=== PATIENT | female | born 2000 | race Caucasian/White ===

== ENCOUNTER 2019-08-07 10:13 | Inpatient (IN) | payer MEDICAID ==
[2019-08-07] MEDS ORDERED: Lidocaine 1% 50 ML MDV INJECT PRN (12:48)
[2019-08-07] MEDS ORDERED: Ondansetron 4 MG/2 ML SDV IVPUSH PRN (12:48)
[2019-08-07] MEDS ORDERED: Sodium Chloride 0.9% 10 ML Syringe FLUSH PRN (12:48)
[2019-08-07] MEDS ORDERED: Methylergonovine 0.2 MG/1 ML Amp IM PRN (12:48)
[2019-08-07] MEDS ORDERED: Tranexamic Acid 1,000 MG in Sodium Chloride 0.9% 100 ML IV PRN (12:48)
[2019-08-07] MEDS ORDERED: Butorphanol 1 MG/ML SDV IVPUSH PRN (12:48)
[2019-08-07] MEDS ORDERED: Water For Irrigation,Sterile 1,000 ML Container IRR PRN (12:48)
[2019-08-07] MEDS ORDERED: Sodium Chloride 0.9% 2.5 ML Syringe FLUSH PRN (12:48)
[2019-08-07] MEDS ORDERED: Misoprostol 200 MCG Tab PO PRN (12:48)
[2019-08-07] MEDS ORDERED: Carboprost Tromethamine 250 MCG/1 ML Amp IM PRN (12:48)
[2019-08-07] MEDS ORDERED: Sodium Chloride 0.9% 10 ML SDV IV PRN (12:48)
[2019-08-07] MEDS ORDERED: Lactated Ringers 1,000 ML IV SCH (13:00)
[2019-08-07] MEDS ORDERED: Oxytocin/0.9 % Sodium Chloride 30 UNIT/500 ML BAG IV SCH (13:00)
--- NOTE | 2019-08-07 13:39 | PCM.LDHP ---
L&D History of Present Illness - General Date of Service: 08/07/19 Admit Problem/Dx: Patient Status Order with Admit Dx/Problem 08/07/19 11:10 Patient Status [ADT] Routine 08/07/19 12:48 Patient Status [ADT] Routine Admission Diagnosis/Problem Admission Diagnosis/Problem 08/07/19 13:35 19 yo, EDC 08/09/2019 O+, RI, GBS neg. Comes in labor. Source of Information: Patient History Limitations: Reports: No Limitations - History of Present Illness Improves with: Reports: None Worsens with: Reports: None Associated Symptoms: Reports: N H&P Review of Systems - Review of Systems: Review Of Systems: See Below General: Reports: No Symptoms HEENT: Reports: No Symptoms Pulmonary: Reports: No Symptoms Cardiovascular: Reports: No Symptoms Gastrointestinal: Reports: No Symptoms Genitourinary: Reports: No Symptoms Musculoskeletal: Reports: No Symptoms Skin: Reports: No Symptoms Psychiatric: Reports: No Symptoms Neurological: Reports: No Symptoms Hematologic/Lymphatic: Reports: No Symptoms Immunologic: Reports: No Symptoms L&D Exam - Exam Exam: See Below - OB Specific Contraction Intensity: Moderate to Strong Movement: Active Heart Tones: Present Heart Tones per Min: 140 Heart Rate (FHR) Variability: Moderate (6-25 bmp) Presentation: Vertex - Hernandez Score Hernandez Score Cervix Position: Midposition Hernandez Score Consistency: Soft Hernandez Score Effacement: 51-70% Hernandez Score Dilation: 3-4 cm Hernandez Score 's Station: -2 Hernandez Score Total: 8 - Exam General: Alert, Oriented, Cooperative HEENT: Hearing Intact Lungs: Clear to Auscultation, Normal Respiratory Effort Cardiovascular: Regular Rate, Regular Rhythm, Normal S1, Normal S2 GI/Abdominal Exam: Soft, Non-Tender, Pelvis Stable Rectal Exam: Deferred Genitourinary: Normal external exam, Normal bimanual exam. No: Cervical fluid, Vaginal bleeding Extremities: Normal Inspection, Normal Range of Motion, Non-Tender, No Pedal Edema Skin: Warm, Dry, Intact Neurological: Cranial Nerves Intact, Normal Speech, Normal Tone Psychiatric: Alert, Normal Affect, Normal Mood - Problem List (1) Supervision of normal IUP (intrauterine ) in primigravida SNOMED Code(s): 88381808, 850626363, 736088486, 512922386 ICD Code: Z34.00 - ENCNTR FOR SUPRVSN OF NORMAL FIRST , UNSP TRIMESTER Status: Acute Priority: High Current Visit: Yes Qualifiers: Trimester: third trimester Qualified Code(s): Z34.03 - Encounter for supervision of normal first , third trimester Problem List Initiated/Reviewed/Updated: Yes Orders Last 24hrs: Active Orders 24 hr Category Date Time Status Patient Status [ADT] Routine ADT 08/07/19 12:48 Active Heart Tones [RC] CONTINUOUS Care 08/07/19 12:48 Active Non Stress Test [RC] PER UNIT ROUTINE Care 08/07/19 11:10 Active Non Stress Test [RC] PER UNIT ROUTINE Care 08/07/19 12:48 Active May Shower [RC] ASDIRECTED Care 08/07/19 12:48 Active Notify Provider [RC] PRN Care 08/07/19 12:48 Active Up ad Betty [RC] ASDIRECTED Care 08/07/19 11:10 Active Up ad Betty [RC] ASDIRECTED Care 08/07/19 12:48 Active Vaginal Exam [RC] Click to Edit Care 08/07/19 11:10 Active Vaginal Exam [RC] PRN Care 08/07/19 12:48 Active Vital Signs [RC] PER UNIT ROUTINE Care 08/07/19 11:10 Active Vital Signs [RC] PER UNIT ROUTINE Care 08/07/19 12:48 Active Regular Diet [DIET] Diet 08/07/19 Lunch Active CBC W/O DIFF,HEMOGRAM [HEME] Routine Lab 08/07/19 12:48 Ordered CORONAVIRUS COVID-19 PCR PHL Routine Lab 08/07/19 12:51 Ordered RPR (SYPHILIS SERO) W/ RFLX [REF] Routine Lab 08/07/19 12:48 Ordered TYPE AND SCREEN [BBK] Routine Lab 08/07/19 12:48 Ordered Butorphanol [Stadol] Med 08/07/19 12:48 Active 1 mg IVPUSH Q1H PRN Carboprost Tromethamine [Hemabate DS] Med 08/07/19 12:48 Active 250 mcg IM ASDIRECTED PRN Lactated Ringers [Ringers, Lactated] 1,000 ml Med 08/07/19 13:00 Active IV ASDIRECTED Lidocaine 1% [Xylocaine 1%] Med 08/07/19 12:48 Active 50 ml INJECT ONETIME PRN Methylergonovine [Methergine] Med 08/07/19 12:48 Active 0.2 mg IM ASDIRECTED PRN Ondansetron [Zofran] Med 08/07/19 12:48 Active 4 mg IVPUSH Q6H PRN Oxytocin/0.9 % Sodium Chloride [Oxytocin 30 Unit/500 ML Med 08/07/19 13:00 Active -NS] 30 unit in 500 ml IV TITRATE Sodium Chloride 0.9% [Normal Saline] Med 08/07/19 12:48 Active 10 ml IV ASDIRECTED PRN Sodium Chloride 0.9% [Saline Flush] Med 08/07/19 12:48 Active 10 ml FLUSH ASDIRECTED PRN Sodium Chloride 0.9% [Saline Flush] Med 08/07/19 12:48 Active 2.5 ml FLUSH ASDIRECTED PRN Tranexamic Acid [Cyklokapron] 1,000 mg Med 08/07/19 12:48 Active Sodium Chloride 0.9% [Normal Saline] 100 ml IV ONETIME Water For Irrigation,Sterile [Sterile Water for Med 08/07/19 12:48 Active Irrigation] 1,000 ml IRR ASDIRECTED PRN miSOPROStoL [Cytotec] Med 08/07/19 12:48 Active 200 mcg PO ONETIME PRN Scalp Electrode [WOMSER] Per Unit Routine Oth 08/07/19 12:48 Ordered Peripheral IV Insertion Adult [OM.PC] Routine Oth 08/07/19 12:48 Ordered Resuscitation Status Routine Resus Stat 08/07/19 11:10 Ordered Medication Orders Butorphanol Tartrate (Stadol) 1 mg IVPUSH Q1H PRN PRN Reason: Pain Carboprost Tromethamine (Hemabate Ds) 250 mcg IM ASDIRECTED PRN PRN Reason: Post Hemorrhage Lactated Ringer's (Ringers, Lactated) 1,000 mls @ 150 mls/hr IV ASDIRECTED YOLANDA Oxytocin/Sodium Chloride (Oxytocin 30 Unit/500 Ml-Ns) 30 unit in 500 mls @ 999 mls/hr IV TITRATE YOLANDA Tranexamic Acid 1,000 mg/ (Sodium Chloride) 110 mls @ 660 mls/hr IV ONETIME PRN PRN Reason: Bleeding Lidocaine HCl (Xylocaine 1%) 50 ml INJECT ONETIME PRN PRN Reason: Laceration repair Methylergonovine Maleate (Methergine) 0.2 mg IM ASDIRECTED PRN PRN Reason: Post Hemorrhage Misoprostol (Cytotec) 200 mcg PO ONETIME PRN PRN Reason: Post Hemorrhage Ondansetron HCl (Zofran) 4 mg IVPUSH Q6H PRN PRN Reason: Nausea/Vomiting Sodium Chloride (Saline Flush) 10 ml FLUSH ASDIRECTED PRN PRN Reason: Keep Vein Open Sodium Chloride (Saline Flush) 2.5 ml FLUSH ASDIRECTED PRN PRN Reason: Keep Vein Open Sodium Chloride (Normal Saline) 10 ml IV ASDIRECTED PRN PRN Reason: IV Use Sterile Water (Sterile Water For Irrigation) 1,000 ml IRR ASDIRECTED PRN PRN Reason: delivery Assessment/Plan Comment:: Labor A: 19 yo, EDC 08/09/2019 O+, RI, GBS neg. Comes in labor. P: Admit, intermit monitoring, pain meds/epidural prn, anticipate . Dr Rhoaeds updated
[2019-08-07] MEDS ORDERED: Nalbuphine 10 MG/1 ML Vial ONE (18:18)
[2019-08-07 18:32] LABS: BLOOD UREA NITROGEN,BUN 11 mg/dL (7.0-18.0); CHLORIDE,CL 104 mmol/L (98-107); GLUCOSE RANDOM 70 mg/dL (74-106); POTASSIUM,K 4.1 mmol/L (3.5-5.1); SODIUM,NA 137 mmol/L (136-145)
[2019-08-07] MEDS: Nalbuphine 10 MG/1 ML Vial IVPUSH PRN (21:03)
[2019-08-08] MEDS: Nalbuphine 10 MG/1 ML Vial IVPUSH PRN (00:43)
--- NOTE | 2019-08-08 13:53 | PCM.DEL ---
L & D Note - General Info Date of Service: 08/08/19 Mother's Due Date: 08/09/19 - Delivery Note Labor: Spontaneous Delivery Outcome: Livebirth Infant Delivery Method: Spontaneous Vaginal Delivery-Single Presentation: Vertex Nuchal Cord: None Anesthesia Type: None Amniotic Fluid Description: Clear Episiotomy Type: None Laceration: Labial (left-sided, not repaired, hemostatic) Cord: 3 Vessels Estimated Blood Loss: 500 Resuscitation Needed: No Score 1 min: 8 Score 5 min: 9 Second Stage Interventions: Reports: Second Nurse Assessed Progress of Descent, Second Nurse Reviewed Contraction Pattern, Second Nurse Reviewed Heart Tones, Encouragement Given, Pushing Effectively, Pushing, Pulls Own Legs Back Delivery Comments (Free Text/Narrative):: at 39 6/7 weeks; viable male ; head delivered with good pushing; shoulders and body following easily after; baby to mom's abdomen [id number] for assessment; APGARs 8/9; weight: 6 lb 11 oz; cord doubly clamped, cut by FOB after 2 minutes; placenta delivered grossly intact, 3VC, EBL 500 mL; fundus boggy initially, pitocin to IVF, some improvement but still boggy; bimanual exam normal, unremarkable; methergine 0.2 mg given IM; several large clots expressed by nurse fundal massage; fundus firm; perineum intact, small left-sided labial laceration noted, hemostatic, not repaired; mom and baby left in stable condition with nurse at bedside for assessment - General Info Date of Service: 08/08/19 Admission Dx/Problem (Free Text): Patient Status Order with Admit Dx/Problem 08/07/19 11:10 Patient Status [ADT] Routine 08/07/19 12:48 Patient Status [ADT] Routine Admission Diagnosis/Problem Admission Diagnosis/Problem 08/07/19 13:35 19 yo, EDC 08/09/2019 O+, RI, GBS neg. Comes in labor. Functional Status: Reports: Pain Controlled, Tolerating Diet - Review of Systems General: Reports: No Symptoms HEENT: Reports: No Symptoms Pulmonary: Reports: No Symptoms Cardiovascular: Reports: No Symptoms Gastrointestinal: Reports: No Symptoms Genitourinary: Reports: No Symptoms Musculoskeletal: Reports: No Symptoms Skin: Reports: No Symptoms Neurological: Reports: No Symptoms Psychiatric: Reports: No Symptoms - Patient Data Weight - Most Recent: 147 lb Lab Results Last 24 Hours: Laboratory Results - last 24 hr 08/07/19 08/07/19 08/07/19 Range/Units 13:25 13:25 13:25 WBC 9.86 (4.0-11.0) K/uL RBC 4.25 L (4.30-5.90) M/uL Hgb 13.7 (12.0-16.0) g/dL Hct 40.5 (36.0-46.0) % MCV 95.3 (80.0-98.0) fL MCH 32.2 H (27.0-32.0) pg MCHC 33.8 (31.0-37.0) g/dL RDW Std Deviation 49.0 (28.0-62.0) fl RDW Coeff of Harman 14 (11.0-15.0) % Plt Count 186 (150-400) K/uL MPV 12.70 H (7.40-12.00) fL Nucleated RBC % 0.0 /100WBC Nucleated RBCs # 0 K/uL Sodium (136-145) mmol/L Potassium (3.5-5.1) mmol/L Chloride (98-107) mmol/L Carbon Dioxide (21.0-32.0) mmol/L BUN (7.0-18.0) mg/dL Creatinine (0.6-1.0) mg/dL Est Cr Clr Drug Dosing mL/min Estimated GFR (MDRD) ml/min Glucose (74-106) mg/dL Uric Acid 4.2 (2.6-7.2) mg/dL Calcium (8.5-10.1) mg/dL Total Bilirubin (0.2-1.0) mg/dL AST (15-37) IU/L ALT (14-63) IU/L Alkaline Phosphatase (46-116) U/L Total Protein (6.4-8.2) g/dL Albumin (3.4-5.0) g/dL Globulin (2.6-4.0) g/dL Albumin/Globulin Ratio (0.9-1.6) Blood Type O POSITIVE Antibody Screen NEGATIVE 08/07/19 Range/Units 13:25 WBC (4.0-11.0) K/uL RBC (4.30-5.90) M/uL Hgb (12.0-16.0) g/dL Hct (36.0-46.0) % MCV (80.0-98.0) fL MCH (27.0-32.0) pg MCHC (31.0-37.0) g/dL RDW Std Deviation (28.0-62.0) fl RDW Coeff of Harman (11.0-15.0) % Plt Count (150-400) K/uL MPV (7.40-12.00) fL Nucleated RBC % /100WBC Nucleated RBCs # K/uL Sodium 137 (136-145) mmol/L Potassium 4.1 (3.5-5.1) mmol/L Chloride 104 (98-107) mmol/L Carbon Dioxide 21.0 (21.0-32.0) mmol/L BUN 11 (7.0-18.0) mg/dL Creatinine 0.6 (0.6-1.0) mg/dL Est Cr Clr Drug Dosing 128.08 mL/min Estimated GFR (MDRD) > 60.0 ml/min Glucose 70 L (74-106) mg/dL Uric Acid (2.6-7.2) mg/dL Calcium 9.6 (8.5-10.1) mg/dL Total Bilirubin 0.3 (0.2-1.0) mg/dL AST 20 (15-37) IU/L ALT 5 L (14-63) IU/L Alkaline Phosphatase 165 H (46-116) U/L Total Protein 6.6 (6.4-8.2) g/dL Albumin 2.9 L (3.4-5.0) g/dL Globulin 3.7 (2.6-4.0) g/dL Albumin/Globulin Ratio 0.8 L (0.9-1.6) Blood Type Antibody Screen Med Orders - Current: Current Medications Butorphanol Tartrate (Stadol) 1 mg IVPUSH Q1H PRN PRN Reason: Pain Carboprost Tromethamine (Hemabate Ds) 250 mcg IM ASDIRECTED PRN PRN Reason: Post Hemorrhage Lactated Ringer's (Ringers, Lactated) 1,000 mls @ 150 mls/hr IV ASDIRECTED YOLANDA Oxytocin/Sodium Chloride (Oxytocin 30 Unit/500 Ml-Ns) 30 unit in 500 mls @ 999 mls/hr IV TITRATE YOLANDA Tranexamic Acid 1,000 mg/ (Sodium Chloride) 110 mls @ 660 mls/hr IV ONETIME PRN PRN Reason: Bleeding Lidocaine HCl (Xylocaine 1%) 50 ml INJECT ONETIME PRN PRN Reason: Laceration repair Methylergonovine Maleate (Methergine) 0.2 mg IM ASDIRECTED PRN PRN Reason: Post Hemorrhage Misoprostol (Cytotec) 200 mcg PO ONETIME PRN PRN Reason: Post Hemorrhage Nalbuphine HCl (Nubain) 10 mg IVPUSH Q1H PRN PRN Reason: Pain Last Admin: 08/08/19 00:43 Dose: 10 mg Documented by: Ondansetron HCl (Zofran) 4 mg IVPUSH Q6H PRN PRN Reason: Nausea/Vomiting Sodium Chloride (Saline Flush) 10 ml FLUSH ASDIRECTED PRN PRN Reason: Keep Vein Open Sodium Chloride (Saline Flush) 2.5 ml FLUSH ASDIRECTED PRN PRN Reason: Keep Vein Open Last Admin: 08/08/19 00:44 Dose: 2.5 ml Documented by: Sodium Chloride (Normal Saline) 10 ml IV ASDIRECTED PRN PRN Reason: IV Use Sterile Water (Sterile Water For Irrigation) 1,000 ml IRR ASDIRECTED PRN PRN Reason: delivery Discontinued Medications Nalbuphine HCl (Nubain) Confirm Administered Dose 10 mg .ROUTE .STK-MED ONE Stop: 08/07/19 18:19 Last Admin: 08/07/19 18:21 Dose: 10 mg Documented by: - Exam General: Alert, Oriented, Cooperative, No Acute Distress Lungs: Normal Respiratory Effort Cardiovascular: Regular Rate, Regular Rhythm GI/Abdominal Exam: Soft, Non-Tender (Female) Exam: Normal External Exam, Normal Bimanual Exam Back Exam: Normal Inspection, Full Range of Motion Extremities: Normal Inspection, Normal Range of Motion, Non-Tender, Normal Cap illary Refill Skin: Warm, Dry, Intact Neurological: No New Focal Deficit, Normal Speech, Normal Tone, Strength Equal Bilateral, Sensation Intact Psy/Mental Status: Alert, Normal Affect, Normal Mood - Problem List & Annotations (1) (spontaneous vaginal delivery) SNOMED Code(s): 569836496 Code(s): O80 - ENCOUNTER FOR FULL-TERM UNCOMPLICATED DELIVERY Status: Acute Priority: High Current Visit: Yes - Problem List Review Problem List Initiated/Reviewed/Updated: Yes - Plan Plan:: Labor A: 19 yo, EDC 08/09/2019 O+, RI, GBS neg. Comes in labor. P: Admit, intermit monitoring, pain meds/epidural prn, anticipate . Dr Rhoades updated Delivery A: at 39 6/7 weeks; viable male infant; head delivered with good pushing; shoulders and body following easily after; baby to mom's abdomen [id number] for assessment; APGARs 8/9; weight: 6 lb 11 oz; cord doubly clamped, cut by FOB after 2 minutes; placenta delivered grossly intact, 3VC, EBL 500 mL; fundus boggy initially, pitocin to IVF, some improvement but still boggy; bimanual exam normal, unremarkable; methergine 0.2 mg given IM; several large clots expressed by nurse fundal massage; fundus firm; perineum intact, small left-sided labial laceration noted, hemostatic, not repaired; mom and baby left in stable condition with nurse at bedside for assessment P: Routine plan of care; Dr. Rhoades updated.
[2019-08-08] MEDS ORDERED: Benzocaine/Menthol 20%-0.5% Spray 78 GM Cannister TOP PRN (13:55)
[2019-08-08] MEDS ORDERED: Lanolin 100% Cream 7 GM Tube TOP PRN (13:55)
[2019-08-08] MEDS ORDERED: Bisacodyl 10 MG Supp RECTAL PRN (13:55)
[2019-08-08] MEDS ORDERED: oxyCODONE 5 MG Tab PO PRN (13:55)
[2019-08-08] MEDS ORDERED: Acetaminophen 500 MG Tab PO PRN ×2 (13:55)
[2019-08-08] MEDS ORDERED: Ibuprofen 800 MG Tab PO PRN (13:55)
[2019-08-08] MEDS ORDERED: Docusate Sodium 100 MG Cap PO PRN (13:55)
[2019-08-08] MEDS ORDERED: Witch Hazel Medicated Pads 40/Jar TOP PRN (13:55)
[2019-08-08] MEDS ORDERED: Ibuprofen 400 MG Tab PO PRN (13:55)
--- NOTE | 2019-08-09 08:02 | PCM.DCSUM1 ---
Discharge Summary - Hospital Course Free Text/Narrative:: Discharge home with baby. Follow up in the clinic in 6 weeks for routine visit. Diagnosis: Stroke: No Modified Yessenia Scale: No Symptoms at All Modified [place] Scale Score: 0 - Discharge Data Discharge Date: 08/09/19 Discharge Disposition: Home, Self-Care 01 Condition: Good - Referral to Home Health Primary Care Physician: Sonia Lambert [employer] - Discharge Diagnosis/Problem(s) (1) (spontaneous vaginal delivery) SNOMED Code(s): 996084961 ICD Code: O80 - ENCOUNTER FOR FULL-TERM UNCOMPLICATED DELIVERY Status: Acute Priority: High Current Visit: Yes - Patient Instructions Diet: Regular Diet as Tolerated, Drink 8-10+ Glasses/Day Activity: As Tolerated, No Strenuous Activities, Rest and Relax Today Driving: May Drive Today Showering/Bathing: May Shower Notify Provider of: Fever, Increased Pain, Swelling and Redness, Drainage, Nausea and/or Vomiting - Discharge Plan *PRESCRIPTION DRUG MONITORING PROGRAM REVIEWED*: Not Applicable *COPY OF PRESCRIPTION DRUG MONITORING REPORT IN PATIENT MEGHA: Not Applicable Prescriptions/Med Rec: Ibuprofen [Motrin] 800 mg PO Q6H PRN #90 tablet PRN Reason: Pain Home Medications: Home Meds Pnv #30/Iron Carb&Aspg/Fa/Om3 [OB Complete with DHA Softgel] 08/07/19 [History] Ibuprofen [Motrin] 800 mg PO Q6H PRN #90 tablet 08/09/19 [Rx] Oxygen Therapy Mode: Room Air Referrals: [facility] [Outside] Tamera Oden CNM [Mid-] - 09/19/19 3:30 pm - Discharge Summary/Plan Comment DC Time >30 min.: Yes - General Info Date of Service: 08/09/19 Admission Dx/Problem (Free Text: Patient Status Order with Admit Dx/Problem 08/07/19 11:10 Patient Status [ADT] Routine 08/07/19 12:48 Patient Status [ADT] Routine Admission Diagnosis/Problem Admission Diagnosis/Problem 08/07/19 13:35 19 yo, EDC 08/09/2019 O+, RI, GBS neg. Comes in labor. Functional Status: Reports: Pain Controlled, Tolerating Diet, Ambulating, Urinating - Review of Systems General: Reports: No Symptoms HEENT: Reports: No Symptoms Pulmonary: Reports: No Symptoms Cardiovascular: Reports: No Symptoms Gastrointestinal: Reports: No Symptoms Genitourinary: Reports: No Symptoms Musculoskeletal: Reports: No Symptoms Skin: Reports: No Symptoms Neurological: Reports: No Symptoms Psychiatric: Reports: No Symptoms - Patient Data Vitals - Most Recent: Last Vital Signs Temp 97.1 F 08/09/19 05:18 Pulse 81 08/09/19 05:18 Resp 15 08/09/19 05:18 BP 111/76 08/09/19 05:18 Pulse Ox 97 08/09/19 05:18 Weight - Most Recent: 147 lb Lab Results - Last 24 hrs: Laboratory Results - last 24 hr 08/09/19 Range/Units 05:02 Hgb 9.9 L (12.0-16.0) g/dL Hct 29.9 L (36.0-46.0) % Med Orders - Current: Current Medications Acetaminophen (Tylenol Extra Strength) 500 mg PO Q4H PRN PRN Reason: Pain Acetaminophen (Tylenol Extra Strength) 1,000 mg PO Q4H PRN PRN Reason: Pain Last Admin: 08/08/19 14:36 Dose: 1,000 mg Documented by: Benzocaine/Menthol (Dermoplast Pain Relief 20%-0.5% Savage) 78 gm TOP ASDIRECTED PRN PRN Reason: Perineal Comfort Measure Bisacodyl (Dulcolax) 10 mg RECTAL ONETIME PRN PRN Reason: Constipation Docusate Sodium (Colace) 100 mg PO BID PRN PRN Reason: Constipation Emollient Ointment (Lansinoh Hpa) 0 gm TOP ASDIRECTED PRN PRN Reason: Sore Nipples Ibuprofen (Motrin) 400 mg PO Q4H PRN PRN Reason: Pain Ibuprofen (Motrin) 800 mg PO Q6H PRN PRN Reason: Pain Oxycodone HCl (Oxycodone) 5 mg PO Q2H PRN PRN Reason: Pain Witch Anne Marie (Tucks) 1 pad TOP ASDIRECTED PRN PRN Reason: comfort care Discontinued Medications Butorphanol Tartrate (Stadol) 1 mg IVPUSH Q1H PRN PRN Reason: Pain Carboprost Tromethamine (Hemabate Ds) 250 mcg IM ASDIRECTED PRN PRN Reason: Post Hemorrhage Lactated Ringer's (Ringers, Lactated) 1,000 mls @ 150 mls/hr IV ASDIRECTED [facility] Oxytocin/Sodium Chloride (Oxytocin 30 Unit/500 Ml-Ns) 30 unit in 500 mls @ 999 mls/hr IV TITRATE [facility] Tranexamic Acid 1,000 mg/ (Sodium Chloride) 110 mls @ 660 mls/hr IV ONETIME PRN PRN Reason: Bleeding Lidocaine HCl (Xylocaine 1%) 50 ml INJECT ONETIME PRN PRN Reason: Laceration repair Methylergonovine Maleate (Methergine) 0.2 mg IM ASDIRECTED PRN PRN Reason: Post Hemorrhage Last Admin: 08/08/19 13:20 Dose: 0.2 mg Documented by: Misoprostol (Cytotec) 200 mcg PO ONETIME PRN PRN Reason: Post Hemorrhage Nalbuphine HCl (Nubain) Confirm Administered Dose 10 mg .ROUTE .K-MED ONE Stop: 08/07/19 18:19 Last Admin: 08/07/19 18:21 Dose: 10 mg Documented by: Nalbuphine HCl (Nubain) 10 mg IVPUSH Q1H PRN PRN Reason: Pain Last Admin: 08/08/19 00:43 Dose: 10 mg Documented by: Ondansetron HCl (Zofran) 4 mg IVPUSH Q6H PRN PRN Reason: Nausea/Vomiting Sodium Chloride (Saline Flush) 10 ml FLUSH ASDIRECTED PRN PRN Reason: Keep Vein Open Sodium Chloride (Saline Flush) 2.5 ml FLUSH ASDIRECTED PRN PRN Reason: Keep Vein Open Last Admin: 08/08/19 00:44 Dose: 2.5 ml Documented by: Sodium Chloride (Normal Saline) 10 ml IV ASDIRECTED PRN PRN Reason: IV Use Sterile Water (Sterile Water For Irrigation) 1,000 ml IRR ASDIRECTED PRN PRN Reason: delivery - Exam General: Reports: Alert, Oriented, Cooperative, No Acute Distress Lungs: Reports: Normal Respiratory Effort Cardiovascular: Reports: Regular Rate, Regular Rhythm GI/Abdominal Exam: Soft, Non-Tender (Female) Exam: Deferred Rectal (Female) Exam: Deferred Back Exam: Reports: Normal Inspection, Full Range of Motion Extremities: Normal Inspection, Normal Range of Motion, Non-Tender, Normal Capillary Refill Skin: Reports: Warm, Dry, Intact Psy/Mental Status: Reports: Alert, Normal Affect, Normal Mood
== END 2019-08-09 16:30 | disposition home or self-care (01) | DRG 807 ==
LOC: MW.OBCHECK 10:13 → MW.OB 10:17 → MW.OBCHECK 12:48 → OBSVTOIN 08-08 13:10 → MW.OB 08-08 19:56
PROVIDERS: ADMIT Obstetrics & Gynecology; ATTEND Obstetrics & Gynecology
PROC: 10E0XZZ Delivery of Products of Conception, External Approach (ICD-10-PCS; principal; 2019-08-08)
PROC: 10907ZC Drainage of Amniotic Fluid, Therapeutic from Products of Conception, Via Natural or Artificial Opening (ICD-10-PCS; 2019-08-08)
DX: O70.0 First degree perineal laceration during delivery (principal); Z37.0 Single live birth; Z3A.39 39 weeks gestation of pregnancy
CPT/HCPCS: 36415; 59025; 59409; 80053; 84550; 85014; 85018; 85027; 86592; 86850; 86900; 86901; A9270-GY; J2210; J2300

== ENCOUNTER 2020-08-26 09:00 | Inpatient (IN) | payer MEDICAID ==
[2020-08-26] MEDS ORDERED: Carboprost Tromethamine 250 MCG/1 ML Amp IM PRN (10:15)
[2020-08-26] MEDS ORDERED: Sodium Chloride 0.9% 10 ML SDV IV PRN (10:15)
[2020-08-26] MEDS ORDERED: Water For Irrigation,Sterile 1,000 ML Container IRR PRN (10:15)
[2020-08-26] MEDS ORDERED: Nalbuphine 10 MG/1 ML Vial IVPUSH PRN (10:15)
[2020-08-26] MEDS ORDERED: Methylergonovine 0.2 MG/1 ML Amp IM PRN (10:15)
[2020-08-26] MEDS ORDERED: Sodium Chloride 0.9% 2.5 ML Syringe FLUSH PRN (10:15)
[2020-08-26] MEDS ORDERED: Terbutaline 1 MG/ML SDV SUBCUT PRN (10:15)
[2020-08-26] MEDS ORDERED: hydrOXYzine Pamoate 25 MG Cap PO PRN (10:15)
[2020-08-26] MEDS ORDERED: Tranexamic Acid 1,000 MG in Sodium Chloride 0.9% 100 ML IV PRN (10:15)
[2020-08-26] MEDS ORDERED: Oxytocin/0.9 % Sodium Chloride 30 UNIT/500 ML BAG IV SCH ×2 (10:15)
[2020-08-26] MEDS ORDERED: Sodium Chloride 0.9% 10 ML Syringe FLUSH PRN (10:15)
[2020-08-26] MEDS ORDERED: Lidocaine 1% 50 ML MDV INJECT PRN (10:15)
[2020-08-26] MEDS ORDERED: Ondansetron 4 MG/2 ML SDV IVPUSH PRN (10:15)
[2020-08-26] MEDS ORDERED: Misoprostol 200 MCG Tab PO PRN (10:15)
[2020-08-26] MEDS: Lactated Ringers 1,000 ML IV SCH ×2 (10:56→22:05)
[2020-08-26] MEDS: Misoprostol 25 MCG (1/4 of 100 MCG) Tab PO PRN ×2 (10:57→16:11)
--- NOTE | 2020-08-26 10:57 | PCM.LDHP ---
L&D History of Present Illness - General Date of Service: 08/26/20 Admit Problem/Dx: Patient Status Order with Admit Dx/Problem 08/26/20 10:15 Patient Status [ADT] Routine Admission Diagnosis/Problem Admission Diagnosis/Problem 08/26/20 10:53 Ileana is a 20 yo at 38+6 weeks gestation (RADHA(LMP) 09/03/2020) that presents to L&D today for IOL re: suspected growth restriction AEB fundal heights low for dates, growth via US 5th%ile (08/22/2020). Patient seen in office 08/25/2020, NST completed and reactive. RBAs of IOL and mode of cervical ripening (cytotec) discussed in office, consents signed. Reports adequate movement. Denies kitty vaginal bleeding, LOF, pain at this time. O pos, RI, GBS neg. EFW 2585 g (5 lb 11 oz), 5th%ile via US 08/22/2020, DWD. Pertinent medical history includes: marginal amniotic fluid/hemorrhoids. NKDA. Medic ations: PNV. Patient has no other complaints or concerns at this time. 08/26/20 10:57 Source of Information: Patient History Limitations: Reports: No Limitations - History of Present Illness Improves with: Reports: None Worsens with: Reports: None - Related Data Allergies/Adverse Reactions: Allergies Allergy/AdvReac Type Severity Reaction Status Date / Time No Known Allergies Allergy Verified 08/07/19 14:48 Home Medications: Home Meds Pnv #30/Iron Carb&Aspg/Fa/Om3 [OB Complete with DHA Softgel] 08/07/19 [History] Ibuprofen [Motrin] 800 mg PO Q6H PRN #90 tablet 08/09/19 [Rx] Past Medical History HEENT History: Reports: None Cardiovascular History: Reports: None Respiratory History: Reports: None Gastrointestinal History: Reports: None Genitourinary History: Reports: None DOCTOR OF PHARMACY History: Reports: : 2 Para: 1 LMP (Approximate): Musculoskeletal History: Reports: None Neurological History: Reports: None Psychiatric History: Reports: None Endocrine/Metabolic History: Reports: None Hematologic History: Reports: None Immunologic History: Reports: None Oncologic (Cancer) History: Reports: None Dermatologic History: Reports: None - Infectious Disease History Infectious Disease History: Reports: Chicken Pox - Past Surgical History Head Surgeries/Procedures: Reports: None HEENT Surgical History: Reports: None Cardiovascular Surgical History: Reports: None Respiratory Surgical History: Reports: None GI Surgical History: Reports: None Female Surgical History: Reports: None Endocrine Surgical History: Reports: None Neurological Surgical History: Reports: None Musculoskeletal Surgical History: Reports: None Oncologic Surgical History: Reports: None Dermatological Surgical History: Reports: None Social & Family History - Family History Family Medical History: No Pertinent Family History - Tobacco Use Tobacco Use Status *Q: Never Tobacco User - Caffeine Use Caffeine Use: Reports: Coffee, Soda - Alcohol Use Alcohol Use History: No - Recreational Drug Use Recreational Drug Use: No H&P Review of Systems - Review of Systems: Review Of Systems: Comprehensive ROS is negative, except as noted in HPI. General: Reports: No Symptoms HEENT: Reports: No Symptoms Pulmonary: Reports: No Symptoms Cardiovascular: Reports: No Symptoms Gastrointestinal: Reports: No Symptoms Genitourinary: Reports: No Symptoms Musculoskeletal: Reports: No Symptoms Skin: Reports: No Symptoms Psychiatric: Reports: No Symptoms Neurological: Reports: No Symptoms Hematologic/Lymphatic: Reports: No Symptoms Immunologic: Reports: No Symptoms L&D Exam - Exam Exam: See Below - Vital Signs Vital Signs: VSS, afebrile. See flowsheet. Weight: 140 lb - OB Specific Fundal Height In cm: 35 Contraction Duration (sec): 40-60 Contraction Frequency (min): Occasional Contraction Intensity: Mild Movement: Active Heart Tones: Present Heart Tones per Min: 140 Heart Rate (FHR) Variability: Moderate (6-25 bmp) Presentation: Vertex (via Thanh's) - Hernandez Score Hernandez Score Cervix Position: Posterior Hernandez Score Consistency: Medium Hernandez Score Effacement: 0-30% Hernandez Score Dilation: Closed Hernandez Score Infant's Station: -3 Hernandez Score Total: 1 - Exam General: Alert, Oriented, Cooperative HEENT: Conjunctiva Clear, Hearing Intact, Mucosa Moist & [place], Nares Patent, PERRLA Neck: Supple, Trachea Midline Lungs: Clear to Auscultation, Normal Respiratory Effort Cardiovascular: Regular Rate, Regular Rhythm GI/Abdominal Exam: Normal Bowel Sounds, Soft, Non-Tender, No Organomegaly, No Distention Rectal Exam: Deferred Genitourinary: Normal external exam, Enlarged uterus (Gravid uterus) Back Exam: Normal Inspection, Full Range of Motion Extremities: Normal Inspection, Normal Range of Motion, Non-Tender, No Pedal Edema, Normal Capillary Refill Skin: Warm, Dry, Intact Neurological: Cranial Nerves Intact, Reflexes Equal Bilateral Psychiatric: Alert, Normal Affect, Normal Mood - Patient Data Lab Results Last 24 hrs: Laboratory Results - last 24 hr 08/26/20 08/26/20 Range/Units 09:30 09:50 WBC 6.44 (4.0-11.0) K/uL RBC 4.09 L (4.30-5.90) M/uL Hgb 10.5 L (12.0-16.0) g/dL Hct 33.0 L (36.0-46.0) % MCV 80.7 (80.0-98.0) fL MCH 25.7 L (27.0-32.0) pg MCHC 31.8 (31.0-37.0) g/dL RDW Std Deviation 42.2 (28.0-62.0) fl RDW Coeff of Harman 15 (11.0-15.0) % Plt Count 246 (150-400) K/uL MPV 11.80 (7.40-12.00) fL Nucleated RBC % 0.0 /100WBC Nucleated RBCs # 0 K/uL SARS-CoV-2 RNA (VENKAT) NEGATIVE (NEGATIVE) Result Diagrams: 08/26/20 09:50 - Problem List (1) Encounter for induction of labor SNOMED Code(s): 290680837 ICD Code: Z34.90 - ENCNTR FOR SUPRVSN OF NORMAL , UNSP, UNSP TRIMESTER Status: Acute Priority: High Current Visit: Yes (2) Maternal care for suspected poor growth, third trimester, single gestation SNOMED Code(s): 333160380, 229796356, 241371741 ICD Code: O36.5930 - MATERN CARE FOR OTH OR SUSP POOR FETL GRTH, THIRD TRI, UNSP Status: Acute Priority: High Current Visit: Yes Problem List Initiated/Reviewed/Updated: Yes Orders Last 24hrs: Active Orders 24 hr Category Date Time Status Patient Status [ADT] Routine ADT 08/26/20 10:15 Active Bedrest Bathroom Privileges [RC] ASDIRECTED Care 08/26/20 10:15 Active Communication Order [RC] ASDIRECTED Care 08/26/20 10:15 Active Communication Order [RC] ASDIRECTED Care 08/26/20 10:15 Active Communication Order [RC] ASDIRECTED Care 08/26/20 10:15 Active Heart Tones [RC] CONTINUOUS Care 08/26/20 10:15 Active Non Stress Test [RC] PER UNIT ROUTINE Care 08/26/20 10:15 Active May Shower [RC] ASDIRECTED Care 08/26/20 10:15 Active Notify Provider [RC] PRN Care 08/26/20 10:15 Active Notify Provider [RC] PRN Care 08/26/20 10:15 Active Notify Provider [RC] PRN Care 08/26/20 10:15 Active Notify Provider [RC] STAT Care 08/26/20 10:15 Active Oxygen Therapy [RC] ASDIRECTED Care 08/26/20 10:15 Active Up ad Betty [RC] ASDIRECTED Care 08/26/20 10:15 Active Vaginal Exam [RC] PRN Care 08/26/20 10:15 Active Vaginal Exam [RC] PRN Care 08/26/20 10:15 Active Vital Signs [RC] PER UNIT ROUTINE Care 08/26/20 10:15 Active Vital Signs [RC] PER UNIT ROUTINE Care 08/26/20 10:15 Active Regular Diet [DIET] Diet 08/26/20 Breakfast Active RPR (SYPHILIS SERO) W/ RFLX [REF] Routine Lab 08/26/20 09:50 Received TYPE AND SCREEN [BBK] Routine Lab 08/26/20 09:50 Received Carboprost Tromethamine [Hemabate DS] Med 08/26/20 10:15 Active 250 mcg IM ASDIRECTED PRN Lactated Ringers [Ringers, Lactated] 1,000 ml Med 08/26/20 10:15 Active IV ASDIRECTED Lidocaine 1% [Xylocaine 1%] Med 08/26/20 10:15 Active 50 ml INJECT ONETIME PRN Methylergonovine [Methergine] Med 08/26/20 10:15 Active 0.2 mg IM ASDIRECTED PRN Nalbuphine [Nubain] Med 08/26/20 10:15 Active 10 mg IVPUSH Q1H PRN Ondansetron [Zofran] Med 08/26/20 10:15 Active 4 mg IVPUSH Q6H PRN Oxytocin/0.9 % Sodium Chloride [Oxytocin 30 Unit/500 ML Med 08/26/20 10:15 Active -NS] 30 unit in 500 ml IV TITRATE Oxytocin/0.9 % Sodium Chloride [Oxytocin 30 Unit/500 ML Med 08/26/20 10:15 Active -NS] 30 unit in 500 ml IV TITRATE Sodium Chloride 0.9% [Normal Saline] Med 08/26/20 10:15 Active 10 ml IV ASDIRECTED PRN Sodium Chloride 0.9% [Saline Flush] Med 08/26/20 10:15 Active 10 ml FLUSH ASDIRECTED PRN Sodium Chloride 0.9% [Saline Flush] Med 08/26/20 10:15 Active 2.5 ml FLUSH ASDIRECTED PRN Terbutaline [Brethine] Med 08/26/20 10:15 Active 0.25 mg SUBCUT ASDIRECTED PRN Tranexamic Acid [Cyklokapron] 1,000 mg Med 08/26/20 10:15 Active Sodium Chloride 0.9% [Normal Saline] 100 ml IV ONETIME Water For Irrigation,Sterile [Sterile Water for Med 08/26/20 10:15 Active Irrigation] 1,000 ml IRR ASDIRECTED PRN hydrOXYzine pamoate [Vistaril] Med 08/26/20 10:15 Active 25 mg PO BEDTIME PRN miSOPROStoL [Cytotec] Med 08/26/20 10:15 Active 200 mcg PO ONETIME PRN miSOPROStoL [Cytotec] Med 08/26/20 10:30 Active 25 mcg PO Q4H PRN miSOPROStoL [Cytotec] Med 08/26/20 10:30 Active 25 mcg VAG Q4H PRN Scalp Electrode [WOMSER] Per Unit Routine Oth 08/26/20 10:15 Ordered Medication Administration Instruction [OM.PC] Q3H Oth 08/26/20 10:15 Ordered Peripheral IV Insertion Adult [OM.PC] Routine Oth 08/26/20 10:15 Ordered Resuscitation Status Routine Resus Stat 08/26/20 10:15 Ordered Medication Orders Carboprost Tromethamine (Carboprost Tromethamine 250 Mcg/1 Ml Amp) 250 mcg IM ASDIRECTED PRN PRN Reason: Post Hemorrhage Hydroxyzine Pamoate (Hydroxyzine Pamoate 25 Mg Cap) 25 mg PO BEDTIME PRN PRN Reason: Sleep Lactated Ringer's (Ringers, Lactated) 1,000 mls @ 150 mls/hr IV ASDIRECTED YOLANDA Oxytocin/Sodium Chloride (Oxytocin 30 Unit/500 Ml-Ns) 30 unit in 500 mls @ 999 mls/hr IV TITRATE YOLANDA Tranexamic Acid 1,000 mg/ (Sodium Chloride) 110 mls @ 660 mls/hr IV ONETIME PRN PRN Reason: Bleeding Oxytocin/Sodium Chloride (Oxytocin 30 Unit/500 Ml-Ns) 30 unit in 500 mls @ 2 mls/hr IV TITRATE YOLANDA; Protocol Lidocaine HCl (Lidocaine 1% 50 Ml Mdv) 50 ml INJECT ONETIME PRN PRN Reason: Laceration repair Methylergonovine Maleate (Methylergonovine 0.2 Mg/1 Ml Amp) 0.2 mg IM ASDIRECTE D PRN PRN Reason: Post Hemorrhage Misoprostol (Misoprostol 200 Mcg Tab) 200 mcg PO ONETIME PRN PRN Reason: Post Hemorrhage Misoprostol (Misoprostol 25 Mcg (1/4 Of 100 Mcg) Tab) 25 mcg PO Q4H PRN PRN Reason: Cervical Ripening Misoprostol (Misoprostol 25 Mcg (1/4 Of 100 Mcg) Tab) 25 mcg VAG Q4H PRN PRN Reason: Cervical Ripening Nalbuphine HCl (Nalbuphine 10 Mg/1 Ml Vial) 10 mg IVPUSH Q1H PRN PRN Reason: Pain (severe 7-10) Ondansetron HCl (Ondansetron 4 Mg/2 Ml Sdv) 4 mg IVPUSH Q6H PRN PRN Reason: Nausea/Vomiting Sodium Chloride (Sodium Chloride 0.9% 10 Ml Syringe) 10 ml FLUSH ASDIRECTED PRN PRN Reason: Keep Vein Open Sodium Chloride (Sodium Chloride 0.9% 2.5 Ml Syringe) 2.5 ml FLUSH ASDIRECTED PRN PRN Reason: Keep Vein Open Sodium Chloride (Sodium Chloride 0.9% 10 Ml Sdv) 10 ml IV ASDIRECTED PRN PRN Reason: IV Use Sterile Water (Water For Irrigation,Sterile 1,000 Ml Container) 1,000 ml IRR ASDIRECTED PRN PRN Reason: delivery Terbutaline Sulfate (Terbutaline 1 Mg/Ml Sdv) 0.25 mg SUBCUT ASDIRECTED PRN PRN Reason: Tacysystole Assessment/Plan Comment:: Admit for observation in anticipation of of term viable . FHR Cat I. Occasional pontaneous contractions noted. Plan to commence cytotec cervical ripening re: IOL for suspected growth restriction. Plan to reassess cervical dilation 4 hours after first dose. If no change has been made, may administer cytotec per orders. May ambulate and hydrotherapy as desired after reactive NST achieved; repeat NST per orders. May receive epidural if desired between 5+ cm. See new orders. Dr. Rhoades to resume care, notified, and agreeable with POC.
[2020-08-26] MEDS: Misoprostol 25 MCG (1/4 of 100 MCG) Tab VAG PRN ×2 (10:58→16:11)
[2020-08-26] MEDS ORDERED: Ropivacaine HCl/PF 200 ML ONE (21:57)
[2020-08-26] MEDS ORDERED: Bupivacaine 0.25% 10 ML SDV ONE (21:57)
--- NOTE | 2020-08-26 22:28 | PCM.PREANE ---
Preanesthetic Assessment - Anesthesia/Transfusion/Family Hx Anesthesia History: No Prior Anesthesia Family History of Anesthesia Reaction: No Transfusion History: No Prior Transfusion(s) Type of Transfusion Reactions: Reports: Unknown - Review of Systems General: No Symptoms Pulmonary: No Symptoms Cardiovascular: No Symptoms Gastrointestinal: No Symptoms Neurological: No Symptoms Other: Reports: None - Physical Assessment NPO Status Date: 08/26/20 NPO Status Time: 18:00 Height: 5 ft 4 in Weight: 140 lb ASA Class: 2 Mental Status: Alert & Oriented x3 Airway Class: Mallampati = 3 Dentition: Reports: Normal Dentition ROM/Head Extension: Full Lungs: Clear to Auscultation, Normal Respiratory Effort Cardiovascular: Regular Rate, Regular Rhythm - Lab Values: Laboratory Last Values WBC 6.44 K/uL (4.0-11.0) 08/26/20 09:50 RBC 4.09 M/uL (4.30-5.90) L 08/26/20 09:50 Hgb 10.5 g/dL (12.0-16.0) L 08/26/20 09:50 Hct 33.0 % (36.0-46.0) L 08/26/20 09:50 MCV 80.7 fL (80.0-98.0) 08/26/20 09:50 MCH 25.7 pg (27.0-32.0) L 08/26/20 09:50 MCHC 31.8 g/dL (31.0-37.0) 08/26/20 09:50 RDW Std Deviation 42.2 fl (28.0-62.0) 08/26/20 09:50 RDW Coeff of Harman 15 % (11.0-15.0) 08/26/20 09:50 Plt Count 246 K/uL (150-400) 08/26/20 09:50 MPV 11.80 fL (7.40-12.00) 08/26/20 09:50 Nucleated RBC % 0.0 /100WBC 08/26/20 09:50 Nucleated RBCs # 0 K/uL 08/26/20 09:50 SARS-CoV-2 RNA (VENKAT) NEGATIVE (NEGATIVE) 08/26/20 09:30 Blood Type O POSITIVE 08/26/20 09:50 Antibody Screen NEGATIVE 08/26/20 09:50 - Allergies Allergies/Adverse Reactions: Allergies Allergy/AdvReac Type Severity Reaction Status Date / Time No Known Allergies Allergy Verified 08/07/19 14:48 - Blood Blood Available: Yes Product(s) Available: PRBC - Anesthesia Plan Pre-Op Medication Ordered: None - Acknowledgements Anesthesia Type Planned: Epidural Pt an Appropriate Candidate for the Planned Anesthesia: Yes Alternatives and Risks of Anesthesia Discussed w Pt/Guardian: Yes Pt/Guardian Understands and Agrees with Anesthesia Plan: Yes PreAnesthesia Questionnaire - Past Health History Medical/Surgical History: Denies Medical/Surgical History HEENT History: Reports: None Cardiovascular History: Reports: None Respiratory History: Reports: None Gastrointestinal History: Reports: None Genitourinary History: Reports: None [employer]CH[employer] History: Reports: Musculoskeletal History: Reports: None Neurological History: Reports: None Psychiatric History: Reports: None Endocrine/Metabolic History: Reports: None Hematologic History: Reports: None Immunologic History: Reports: None Oncologic (Cancer) History: Reports: None Dermatologic History: Reports: None - Infectious Disease History Infectious Disease History: Reports: Chicken Pox - Past Surgical History Head Surgeries/Procedures: Reports: None HEENT Surgical History: Reports: None Cardiovascular Surgical History: Reports: None Respiratory Surgical History: Reports: None GI Surgical History: Reports: None Female Surgical History: Reports: None Endocrine Surgical History: Reports: None Neurological Surgical History: Reports: None Musculoskeletal Surgical History: Reports: None Oncologic Surgical History: Reports: None Dermatological Surgical History: Reports: None - SUBSTANCE USE Tobacco Use Status *Q: Never Tobacco User Tobacco Use Within Last Twelve Months: No Second Hand Smoke Exposure: No Recreational Drug Use History: No - HOME MEDS Home Medications: Home Meds Pnv #30/Iron Carb&Aspg/Fa/Om3 [OB Complete with DHA Softgel] 1 tab PO DAILY 08/07/19 [History] - CURRENT (IN HOUSE) MEDS Current Meds: Current Medications Carboprost Tromethamine (Carboprost Tromethamine 250 Mcg/1 Ml Amp) 250 mcg IM ASDIRECTED PRN PRN Reason: Post Hemorrhage Hydroxyzine Pamoate (Hydroxyzine Pamoate 25 Mg Cap) 25 mg PO BEDTIME PRN PRN Reason: Sleep Lactated Ringer's (Ringers, Lactated) 1,000 mls @ 150 mls/hr IV ASDIRECTED YOLANDA Last Admin: 07/13/21 10:56 Dose: 150 mls/hr Documented by: Oxytocin/Sodium Chloride (Oxytocin 30 Unit/500 Ml-Ns) 30 unit in 500 mls @ 999 mls/hr IV TITRATE YOLANDA Tranexamic Acid 1,000 mg/ (Sodium Chloride) 110 mls @ 660 mls/hr IV ONETIME PRN PRN Reason: Bleeding Oxytocin/Sodium Chloride (Oxytocin 30 Unit/500 Ml-Ns) 30 unit in 500 mls @ 2 mls/hr IV TITRATE YOLANDA; Protocol Lidocaine HCl (Lidocaine 1% 50 Ml Mdv) 50 ml INJECT ONETIME PRN PRN Reason: Laceration repair Methylergonovine Maleate (Methylergonovine 0.2 Mg/1 Ml Amp) 0.2 mg IM ASDIRECTED PRN PRN Reason: Post Hemorrhage Misoprostol (Misoprostol 200 Mcg Tab) 200 mcg PO ONETIME PRN PRN Reason: Post Hemorrhage Misoprostol (Misoprostol 25 Mcg (1/4 Of 100 Mcg) Tab) 25 mcg PO Q4H PRN PRN Reason: Cervical Ripening Last Admin: 08/26/20 16:11 Dose: 25 mcg Documented by: Misoprostol (Misoprostol 25 Mcg (1/4 Of 100 Mcg) Tab) 25 mcg VAG Q4H PRN PRN Reason: Cervical Ripening Last Admin: 08/26/20 16:11 Dose: 25 mcg Documented by: Nalbuphine HCl (Nalbuphine 10 Mg/1 Ml Vial) 10 mg IVPUSH Q1H PRN PRN Reason: Pain (severe 7-10) Ondansetron HCl (Ondansetron 4 Mg/2 Ml Sdv) 4 mg IVPUSH Q6H PRN PRN Reason: Nausea/Vomiting Sodium Chloride (Sodium Chloride 0.9% 10 Ml Syringe) 10 ml FLUSH ASDIRECTED PRN PRN Reason: Keep Vein Open Sodium Chloride (Sodium Chloride 0.9% 2.5 Ml Syringe) 2.5 ml FLUSH ASDIRECTED PRN PRN Reason: Keep Vein Open Sodium Chloride (Sodium Chloride 0.9% 10 Ml Sdv) 10 ml IV ASDIRECTED PRN PRN Reason: IV Use Sterile Water (Water For Irrigation,Sterile 1,000 Ml Container) 1,000 ml IRR ASDIRECTED PRN PRN Reason: delivery Terbutaline Sulfate (Terbutaline 1 Mg/Ml Sdv) 0.25 mg SUBCUT ASDIRECTED PRN PRN Reason: Tacysystole Discontinued Medications Bupivacaine HCl (Bupivacaine 0.25% 10 Ml Sdv) Confirm Administered Dose 10 ml .ROUTE .STK-MED ONE Stop: 08/26/20 21:58 Ropivacaine (Naropin 0.2%) Confirm Administered Dose 200 mls @ as directed .ROUTE .STiProcure-MED ONE Stop: 08/26/20 21:58 - Pre-Procedure Checklist Attending Provider Aware: Yes Chart Reviewed: Yes Consent Signed: Yes Labs Reviewed: Yes VS/FHR Reviewed: Yes Patient Identification Confirmation Method: Reports: Verbal Patient Pt an Appropriate Candidate for the Planned Anesthesia: Yes Alternatives and Risks of Anesthesia Discussed w Pt/Guardian: Yes - Procedure Procedure Start Date: 08/26/20 Procedure Start Time: 22:[address]: Reports: Blood Pressure, Heart Rate, SPO2 Functional IV: Yes Safety Measures: Reports: Patient Identified, Procedure Verified, Site Verified, Procedure Time Out Patient Position: Reports: Sitting Prep: Reports: Betadine x3, Sterile Drape Local Anesthetic: Reports: Intradermal Wheal w Lidocaine 1% Regional Placement Level: Reports: L3-4 Needle: Reports: 17 g Touhy Approach: Reports: Midline Technique: Reports: ABDIFATAH Plastic Syringe Parasthesia: Reports: None Test Dose Time: 22:08 Test Dose Medication: Reports: Lidocaine 1.5% w Epinephrine 1:200,000 Test Dose Response: Reports: Negative Loading Dose Time: 22:07 Loading Dose Medication: bupivicaine 0.25% 10cc Loading Dose Patient Position: sitting Continuous Infusion Start Time: 22:10 Continuous Infusion Medication: ropivicaine 0.2% Continuous Infusion Rate: 16 Continuous Infusion PCS Bolus Option: 4 Continuous Infusion Lockout Dose (cc/hr): 15 Patient Position Post Placement: Reports: Supline/PRATIK VS and FHR Monitored in Unit Post Placement: Yes Procedure End Date: 08/26/20 Procedure End Time: 23:03
[2020-08-27] MEDS ORDERED: Bisacodyl 10 MG Supp RECTAL PRN (00:45)
[2020-08-27] MEDS ORDERED: Lanolin 100% Cream 7 GM Tube TOP PRN (00:45)
[2020-08-27] MEDS ORDERED: Docusate Sodium 100 MG Cap PO PRN (00:45)
[2020-08-27] MEDS ORDERED: Ibuprofen 400 MG Tab PO PRN (00:45)
[2020-08-27] MEDS ORDERED: oxyCODONE 5 MG Tab PO PRN (00:45)
[2020-08-27] MEDS ORDERED: Benzocaine/Menthol 20%-0.5% Spray 78 GM Cannister TOP PRN (00:45)
[2020-08-27] MEDS ORDERED: Acetaminophen 500 MG Tab PO PRN (00:45)
[2020-08-27] MEDS ORDERED: Witch Hazel Medicated Pads 40/Jar TOP PRN (00:45)
[2020-08-27] MEDS ORDERED: Ibuprofen 800 MG Tab PO PRN (00:45)
--- NOTE | 2020-08-27 07:46 | OR ---
SURGEON: William Rhoades MD DATE OF PROCEDURE: 08/27/2020 DELIVERY NOTE: Ms. Tejeda is 20. She is para 1-0-0-1. She is 38+4. She is followed in our clinic primarily by our nurse midwifery service. The patient has a possibility of small for gestational age versus growth retardation. The patient is, because of that, admitted for elective induction. She is induced with Cytotec and she responded to it very well. At the time of admission, she was 2 cm, and with 2 doses of Cytotec, she has progress to 4 to 5 cm with spontaneous rupture of membranes with clear fluid. The patient's GBS status is negative. She had epidural anesthesia for labor analgesia, and she was able to accomplish normal spontaneous vaginal delivery of a male fetus, cried immediately. score reported to be 7 and 9. The weight is not available. The placenta delivered spontaneous, complete, and intact. There was no need for episiotomy. There was no perineal, labial, or vaginal laceration. Estimated blood loss was 250 to 300 mL. heart rate was category 1 through the entire process of labor. There was no complication in the labor and delivery process of this patient. LIYA / ELENA /[id number]
--- NOTE | 2020-08-27 11:31 | PCM.POSTAN ---
POST ANESTHESIA ASSESSMENT - MENTAL STATUS Mental Status: Alert, Oriented - VITAL SIGNS Vital Signs: Last Vital Signs Temp 97.3 F 08/27/20 07:53 Pulse 70 08/27/20 07:53 Resp 13 08/27/20 07:53 BP 106/71 08/27/20 07:53 Pulse Ox 98 08/27/20 07:53 - RESPIRATORY Respiratory Status: Respiratory Rate WNL, Airway Patent, O2 Saturation Stable - CARDIOVASCULAR CV Status: Pulse Rate WNL, Blood Pressure Stable - GASTROINTESTINAL GI Status: No Symptoms - POST OP HYDRATION Hydration Status: Adequate & Stable
--- NOTE | 2020-08-27 11:32 | PCM48HPAN ---
Post Anesthesia Note - EVALUATION WITHIN 48HRS OF ANESTHETIC Vital Signs in Normal Range: Yes Patient Participated in Evaluation: Yes Respiratory Function Stable: Yes Airway Patent: Yes Cardiovascular Function Stable: Yes Hydration Status Stable: Yes Pain Control Satisfactory: Yes Nausea and Vomiting Control Satisfactory: Yes Mental Status Recovered: Yes Vital Signs: Last Vital Signs Temp 97.3 F 08/27/20 07:53 Pulse 70 08/27/20 07:53 Resp 13 08/27/20 07:53 BP 106/71 08/27/20 07:53 Pulse Ox 98 08/27/20 07:53
[2020-08-28] MEDS: Acetaminophen 500 MG Tab PO PRN ×2 (01:35→08:05)
--- NOTE | 2020-08-28 08:58 | PCM.DCSUM1 ---
Discharge Summary - Hospital Course Free Text/Narrative:: Discharge home with baby. Follow up in the clinic in six weeks for routine visit; sooner, if needed. Diagnosis: Stroke: No Modified [place] Scale: No Symptoms at All Modified Yessenia Scale Score: 0 - Discharge Data Discharge Date: 08/28/20 Discharge Disposition: Home, Self-Care 01 Condition: Good - Referral to Home Health Primary Care Physician: William Rhoades MD - Discharge Diagnosis/Problem(s) (1) (spontaneous vaginal delivery) SNOMED Code(s): 882647852 ICD Code: O80 - ENCOUNTER FOR FULL-TERM UNCOMPLICATED DELIVERY Status: Acute Priority: High Current Visit: No - Patient Instructions Diet: Regular Diet as Tolerated, Drink 8-10+ Glasses/Day Activity: As Tolerated, No Strenuous Activities, Rest and Relax Today Driving: May Drive Today Showering/Bathing: May Shower Notify Provider of: Fever, Increased Pain, Swelling and Redness, Drainage, Nausea and/or Vomiting - Discharge Plan *PRESCRIPTION DRUG MONITORING PROGRAM REVIEWED*: Not Applicable *COPY OF PRESCRIPTION DRUG MONITORING REPORT IN PATIENT MEGHA: Not Applicable Prescriptions/Med Rec: Lanolin [Lansinoh HPA] 1 tube TOP ASDIRECTED PRN #2 tube PRN Reason: Sore Nipples Ibuprofen [Motrin] 800 mg PO Q6H PRN #60 tablet PRN Reason: Pain (Mild 1-3) Home Medications: Home Meds Pnv #30/Iron Carb&Aspg/Fa/Om3 [OB Complete with DHA Softgel] 1 tab PO DAILY 08/07/19 [History] Ibuprofen [Motrin] 800 mg PO Q6H PRN #60 tablet 08/28/20 [Rx] Lanolin [Lansinoh HPA] 1 tube TOP ASDIRECTED PRN #2 tube 08/28/20 [Rx] Oxygen Therapy Mode: Room Air - Discharge Summary/Plan Comment DC Time >30 min.: Yes - General Info Date of Service: 08/28/20 Admission Dx/Problem (Free Text: Patient Status Order with Admit Dx/Problem 08/26/20 10:15 Patient Status [ADT] Routine Admission Diagnosis/Problem Admission Diagnosis/Problem 08/26/20 10:53 Ileana is a 20 yo at 38+6 weeks gestation (RADHA(LMP) 09/03/2020) that presents to L&D today for IOL re: suspected growth restriction AEB fundal heights low for dates, growth via US 5th%ile (08/22/2020). Patient seen in office 08/25/2020, NST completed and reactive. RBAs of IOL and mode of cervical ripening (cytotec) discussed in office, consents signed. Reports adequate movement. Denies kitty vaginal bleeding, LOF, pain at this time. O pos, RI, GBS neg. EFW 2585 g (5 lb 11 oz), 5th%ile via US 08/22/2020, DWD. Pertinent medical history includes: marginal amniotic fluid/hemorrhoids. NKDA. Medications: PNV. Patient has no other complaints or concerns at this time. 08/26/20 10:57 Functional Status: Reports: Pain Controlled, Tolerating Diet, Ambulating, Urinating - Review of Systems General: Reports: No Symptoms HEENT: Reports: No Symptoms Pulmonary: Reports: No Symptoms Cardiovascular: Reports: No Symptoms Gastrointestinal: Reports: No Symptoms Genitourinary: Reports: No Symptoms Musculoskeletal: Reports: No Symptoms Skin: Reports: No Symptoms Neurological: Reports: No Symptoms Psychiatric: Reports: No Symptoms - Patient Data Vitals - Most Recent: Last Vital Signs Temp 97.4 F 08/28/20 08:00 Pulse 65 08/28/20 08:00 Resp 18 08/28/20 08:00 BP 106/69 08/28/20 08:00 Pulse Ox 97 08/28/20 08:00 Weight - Most Recent: 140 lb Lab Results - Last 24 hrs: Laboratory Results - last 24 hr 08/26/20 08/28/20 Range/Units 09:50 05:30 Hgb 9.4 L (12.0-16.0) g/dL Hct 29.9 L (36.0-46.0) % RPR Non-Reac (Non-Reac) Med Orders - Current: Current Medications Acetaminophen (Acetaminophen 500 Mg Tab) 500 mg PO Q4H PRN PRN Reason: Pain (mild 1-3) Last Admin: 08/28/20 08:05 Dose: 500 mg Documented by: Acetaminophen (Acetaminophen 500 Mg Tab) 1,000 mg PO Q4H PRN PRN Reason: Pain (mild 1-3) Last Admin: 08/27/20 09:57 Dose: 1,000 mg Documented by: Benzocaine/Menthol (Benzocaine/Menthol 20%-0.5% [place] 78 Gm Cannister) 78 gm TOP ASDIRECTED PRN PRN Reason: Perineal Comfort Measure Last Admin: 08/27/20 06:46 Dose: 1 canister Documented by: Bisacodyl (Bisacodyl 10 Mg Supp) 10 mg RECTAL ONETIME PRN PRN Reason: Constipation Carboprost Tromethamine (Carboprost Tromethamine 250 Mcg/1 Ml Amp) 250 mcg IM ASDIRECTED PRN PRN Reason: Post Hemorrhage Docusate Sodium (Docusate Sodium 100 Mg Cap) 100 mg PO Q12H PRN PRN Reason: Constipation Emollient Ointment (Lanolin 100% Cream 7 Gm Tube) 0 gm TOP ASDIRECTED PRN PRN Reason: Sore Nipples Last Admin: 08/27/20 06:45 Dose: 7 g Documented by: Hydroxyzine Pamoate (Hydroxyzine Pamoate 25 Mg Cap) 25 mg PO BEDTIME PRN PRN Reason: Sleep Lactated Ringer's (Ringers, Lactated) 1,000 mls @ 150 mls/hr IV ASDIRECTED YOLANDA Last Infusion: 08/27/20 00:39 Dose: 0 mls/hr Documented by: Oxytocin/Sodium Chloride (Oxytocin 30 Unit/500 Ml-Ns) 30 unit in 500 mls @ 999 mls/hr IV TITRATE [facility] Last Infusion: 08/27/20 00:54 Dose: 500 mls/hr Documented by: Tranexamic Acid 1,000 mg/ (Sodium Chloride) 110 mls @ 660 mls/hr IV ONETIME PRN PRN Reason: Bleeding Oxytocin/Sodium Chloride (Oxytocin 30 Unit/500 Ml-Ns) 30 unit in 500 mls @ 2 mls/hr IV TITRATE [facility]; Protocol Ibuprofen (Ibuprofen 400 Mg Tab) 400 mg PO Q4H PRN PRN Reason: Pain (mild 1-3) Ibuprofen (Ibuprofen 800 Mg Tab) 800 mg PO Q6H PRN PRN Reason: Pain (mild 1-3) Last Admin: 08/27/20 02:20 Dose: 800 mg Documented by: Lidocaine HCl (Lidocaine 1% 50 Ml Mdv) 50 ml INJECT ONETIME PRN PRN Reason: Laceration repair Methylergonovine Maleate (Methylergonovine 0.2 Mg/1 Ml Amp) 0.2 mg IM ASDIRECTED PRN PRN Reason: Post Hemorrhage Misoprostol (Misoprostol 200 Mcg Tab) 200 mcg PO ONETIME PRN PRN Reason: Post Hemorrhage Misoprostol (Misoprostol 25 Mcg (1/4 Of 100 Mcg) Tab) 25 mcg PO Q4H PRN PRN Reason: Cervical Ripening Last Admin: 08/26/20 16:11 Dose: 25 mcg Documented by: Misoprostol (Misoprostol 25 Mcg (1/4 Of 100 Mcg) Tab) 25 mcg VAG Q4H PRN PRN Reason: Cervical Ripening Last Admin: 08/26/20 16:11 Dose: 25 mcg Documented by: Nalbuphine HCl (Nalbuphine 10 Mg/1 Ml Vial) 10 mg IVPUSH Q1H PRN PRN Reason: Pain (severe 7-10) Ondansetron HCl (Ondansetron 4 Mg/2 Ml Sdv) 4 mg IVPUSH Q6H PRN PRN Reason: Nausea/Vomiting Oxycodone HCl (Oxycodone 5 Mg Tab) 5 mg PO Q2H PRN PRN Reason: Pain (severe 7-10) Sodium Chloride (Sodium Chloride 0.9% 10 Ml Syringe) 10 ml FLUSH ASDIRECTED PRN PRN Reason: Keep Vein Open Sodium Chloride (Sodium Chloride 0.9% 2.5 Ml Syringe) 2.5 ml FLUSH ASDIRECTED PRN PRN Reason: Keep Vein Open Sodium Chloride (Sodium Chloride 0.9% 10 Ml Sdv) 10 ml IV ASDIRECTED PRN PRN Reason: IV Use Sterile Water (Water For Irrigation,Sterile 1,000 Ml Container) 1,000 ml IRR ASDIRECTED PRN PRN Reason: delivery Terbutaline Sulfate (Terbutaline 1 Mg/Ml Sdv) 0.25 mg SUBCUT ASDIRECTED PRN PRN Reason: Tacysystole Witch Anne Marie (Witch Anne Marie Medicated Pads 40/Jar) 1 pad TOP ASDIRECTED PRN PRN Reason: comfort care Last Admin: 08/27/20 06:46 Dose: 1 tub Documented by: Discontinued Medications Bupivacaine HCl (Bupivacaine 0.25% 10 Ml Sdv) Confirm Administered Dose 10 ml .ROUTE .STK-MED ONE Stop: 08/26/20 21:58 Last Admin: 08/27/20 10:26 Dose: Not Given Documented by: Ropivacaine (Naropin 0.2%) Confirm Administered Dose 200 mls @ as directed .ROUTE .STK-MED ONE Stop: 08/26/20 21:58 Last Admin: 08/27/20 10:26 Dose: Not Given Documented by: - Exam General: Reports: Alert, Oriented, Cooperative, No Acute Distress Lungs: Reports: Normal Respiratory Effort Cardiovascular: Reports: Regular Rate, Regular Rhythm GI/Abdominal Exam: Soft, Non-Tender (Female) Exam: Deferred Rectal (Female) Exam: Deferred Back Exam: Reports: Normal Inspection, Full Range of Motion Extremities: Normal Inspection, Normal Range of Motion, Non-Tender, Normal Capillary Refill Skin: Reports: Warm, Dry, Intact Neurological: Reports: Normal Speech, Normal Tone Psy/Mental Status: Reports: Alert, Normal Affect, Normal Mood
== END 2020-08-28 14:50 | disposition home or self-care (01) | DRG 807 ==
LOC: MW.OBCHECK 09:00 → MW.OB 09:01 → MW.OBCHECK 10:14 → MW.OB 10:15 → OBSVTOIN 08-27 00:38 → MW.OB 08-27 07:19
PROVIDERS: ADMIT Obstetrics & Gynecology; ATTEND Obstetrics & Gynecology
PROC: 10E0XZZ Delivery of Products of Conception, External Approach (ICD-10-PCS; principal; 2020-08-27)
PROC: 3E0P7VZ Introduction of Hormone into Female Reproductive, Via Natural or Artificial Opening (ICD-10-PCS; 2020-08-27)
PROC: 3E0R3BZ Introduction of Anesthetic Agent into Spinal Canal, Percutaneous Approach (ICD-10-PCS; 2020-08-27)
DX: O36.5930 Maternal care for other known or suspected poor fetal growth, third trimester, not applicable or unspecified (principal); Z37.0 Single live birth; Z3A.38 38 weeks gestation of pregnancy; Z20.822 Contact with and (suspected) exposure to COVID-19
CPT/HCPCS: 01967; 36415; 51702; 59025; 59409; 85014; 85018; 85027; 86592; 86850; 86900; 86901; A9270-GY; J2590; J2795; J3490; J7120; U0002